=== PATIENT | male | born 1955 | race African-American/Black ===

== ENCOUNTER 2021-06-02 07:03 | Emergency (ER) | payer SELFPAY ==
--- NOTE | 2021-06-02 08:57 | RAD REPORT ---
EXAM DESCRIPTION: US - Extremity Venous Uni Ltd - 06/02/2021 8:45 am CLINICAL HISTORY: Pain;Swelling COMPARISON: None. TECHNIQUE: Real-time sonographic evaluation of the right lower extremity deep venous systems was per formed. FINDINGS: Normal compressibility, flow augmentation, phasic flow and spontaneous flow are identified in the right lower extremity common femoral, superficial femoral, popliteal and posterior tibial vei ns. No intraluminal filling defects seen. IMPRESSION: No DVT in the right lower extremity.
--- NOTE | 2021-06-02 09:50 | RAD REPORT ---
EXAM DESCRIPTION: RAD - Knee Right 3 View - 06/02/2021 9:26 am CLINICAL HISTORY: Pain;Swelling COMPARISON: No comparisons FINDINGS: No fracture, dislocation or periosteal reaction.Joint effusion is suspected. Medial compar tment marginal spurs are present along with spurring of the intercondylar notch and tibial spine. No joint space narrowing. No foreign body or other soft tissue abnormality. IMPRESSION: Joint effusion is suspected and there are degenerative changes present primarily medial compartment. Clinical concerns for internal derangement or occult bony injury could be further assessed with MR im aging.
--- NOTE | 2021-06-02 10:18 | EDPHYS ---
Physician Documentation [facility] Name: Calixto Fowler Age: 65 yrs Sex: Male : 1955 Arrival Date: 06/02/2021 Time: 07:06 Bed 24 Private MD: ED Physician Doc Downing HPI: 06/02 08:05 This 65 yrs old Black Male presents to ER via Ambulatory with complaints of Edema - cp RIGHT KNEE AND THIGH. 08:05 The patient presents with pain, that is acute. The complaints affect the right knee. cp 08:05 Onset: The symptoms/episode began/occurred 3 day(s) ago. cp 08:05 Associated signs and symptoms: Pertinent negatives calf tenderness, numbness, warmth, cp injury. 08:05 Treatment prior to arrival includes: no previous treatment. cp Historical: - Allergies: 07:56 Sulfa (Sulfonamide Antibiotics); iw - Home Meds: 07:56 None [Active]; iw - PMHx: 07:56 None; iw - PSHx: 07:56 None; iw - Immunization history:: Client reports receiving the 2nd dose of the Covid vaccine, Date received: February 26, 2021. - Social history:: Smoking status: Patient denies any tobacco usage or history of. ROS: 08:10 Constitutional: Negative for body aches, chills, fever, poor PO intake. cp 08:10 Eyes: Negative for injury, pain, redness, and discharge. cp 08:10 ENT: Negative for ear pain, sore throat, difficulty swallowing, difficulty handling secretions. 08:10 Cardiovascular: Negative for chest pain, palpitations. 08:10 Respiratory: Negative for shortness of breath. 08:10 Back: Negative for pain at rest, pain with movement. 08:10 MS/extremity: Positive for pain, swelling, tenderness, of the right knee. 08:10 Skin: Negative for rash. 08:10 All other systems are negative. Exam: 08:15 Constitutional: The patient appears in no acute distress, alert, awake, non-toxic, well cp developed, well nourished. 08:15 Head/Face: Normocephalic, atraumatic. cp 08:15 Chest/axilla: Inspection: normal. 08:15 Cardiovascular: Rate: normal. 08:15 Respiratory: the patient does not display signs of respiratory distress, Respirations: normal, no use of accessory muscles, no retractions, labored breathing, is not present. 08:15 Abdomen/GI: Inspection: abdomen appears normal. 08:15 Back: pain, is absent, ROM is normal. 08:15 Musculoskeletal/extremity: ROM: full passive range of motion, in the right knee, Perfusion: the extremity is normally perfused throughout, the right leg Sensation intact. Joints: All joints are normal except the right knee displays effusion, swelling, tenderness. 08:15 Skin: warm, dry, intact and no signs of cellulitis. Vital Signs: 07:55 BP 141 / 105; Pulse 64; Resp 16; Temp 98.6; Pulse Ox 100% on R/A; Weight 92.99 kg; iw Height 5 ft. 8 in. (172.72 cm); 07:55 Body Mass Index 31.17 (92.99 kg, 172.72 cm) iw MDM: 10:05 Patient medically screened. cp 10:10 Differential diagnosis: closed fracture, contusion, tendonitis, DVT, septic joint, cp cellulitis. 10:16 Data reviewed: vital signs, nurses notes, radiologic studies, plain films, ultrasound. cp Counseling: I had a detailed discussion with the patient and/or guardian regarding: the historical points, exam findings, and any diagnostic results supporting the discharge/admit diagnosis, radiology results, the need for outpatient follow up, for definitive care, a orthopedic surgeon, to return to the emergency department if symptoms worsen or persist or if there are any questions or concerns that arise at home. 06/02 09:56 Order name: Glucose, Ancillary Testing EDMS 06/02 08:00 Order name: Knee Right 3 View XRAY; Complete Time: 10:12 iw 06/02 10:12 Interpretation: Report reviewed. cp 06/02 08:07 Order name: US Extremity Venous Unilateral Ltd; Complete Time: 09:47 cp 06/02 09:47 Interpretation: Report reviewed. cp Administered Medications: No medications were administered Disposition: 10:34 Co-signature as Attending Physician, Doc Downing MD I agree with the assessment and kdr plan of care. Disposition Summary: 06/02/21 10:17 Discharge Ordered Location: Home cp Problem: new cp Symptoms: have improved cp Condition: Stable cp Diagnosis - Effusion, right knee cp Followup: cp - With: Michael Kelley MD - When: 2 - 3 days - Reason: Recheck today's complaints Discharge Instructions: - Discharge Summary Sheet cp - Knee Effusion cp - RICE Therapy for Routine Care of Injuries cp Forms: - Medication Reconciliation Form cp - Thank You Letter cp - Antibiotic Education cp - Prescription Opioid Use cp Prescriptions: - Diclofenac Sodium 75 mg Oral tablet,delayed release (DR/EC) - take 1 tablet by ORAL route 2 times per day; 20 tablet; Refills: 0, Product cp Selection Permitted Signatures: Dispatcher [employer] Doc Hein MD MD kdr Williams, Irene, RN RN Vijay Calixto PA PA cp Corrections: (The following items were deleted from the chart) 08:10 08:08 This 65 yrs old Black Male presents to ER via Ambulatory with complaints of Edema cp - RIGHT KNEE AND THIGH. cp
--- NOTE | 2021-06-02 10:18 | ER ---
Nurse's Notes [facility] Name: Calixto Fowler Age: 65 yrs Sex: Male : 1955 Arrival Date: 06/02/2021 Time: 07:06 Bed 24 Private MD: Diagnosis: Effusion, right knee Presentation: 06/02 07:55 Chief complaint: Patient states: right knee pain and swelling since Wednesday, denies iw injury, pt states swelling is going up into his thigh. Coronavirus screen: At this time, the client does not indicate any symptoms associated with coronavirus-19. Ebola Screen: Patient negative for fever greater than or equal to 101.5 degrees Fahrenheit, and additional compatible Ebola Virus Disease symptoms Patient denies exposure to infectious person. Patient denies travel to an Ebola-affected area in the 21 days before illness onset. No symptoms or risks identified at this time. Initial Sepsis Screen: Does the patient meet any 2 criteria? No. Patient's initial sepsis screen is negative. Does the patient have a suspected source of infection? No. Patient's initial sepsis screen is negative. Risk Assessment: Do you want to hurt yourself or someone else? Patient reports no desire to harm self or others. Onset of symptoms was May 31, 2021. 07:55 Method Of Arrival: Ambulatory iw 07:55 Acuity: RICCO 3 iw Triage Assessment: 10:00 General: Appears in no apparent distress. Behavior is calm, cooperative. iw Historical: - Allergies: 07:56 Sulfa (Sulfonamide Antibiotics); iw - Home Meds: 07:56 None [Active]; iw - PMHx: 07:56 None; iw - PSHx: 07:56 None; iw - Immunization history:: Client reports receiving the 2nd dose of the Covid vaccine, Date received: February 26, 2021. - Social history:: Smoking status: Patient denies any tobacco usage or history of. Screenin:29 Abuse screen: Denies threats or abuse. Denies injuries from another. Nutritional iw screening: No deficits noted. Tuberculosis screening: No symptoms or risk factors identified. Fall Risk None identified. Assessment: 08:00 General: Appears in no apparent distress. Behavior is calm, cooperative. Pain: iw Complains of pain in right knee. Neuro: Level of Consciousness is awake, alert, obeys commands, Oriented to person, place, time, situation, Full function. Cardiovascular: Patient's skin is warm and dry. Respiratory: Airway is patent. Derm: Skin is intact, is healthy with good turgor. Musculoskeletal: Swelling present in right knee. Vital Signs: 07:55 BP 141 / 105; Pulse 64; Resp 16; Temp 98.6; Pulse Ox 100% on R/A; Weight 92.99 kg; iw Height 5 ft. 8 in. (172.72 cm); 07:55 Body Mass Index 31.17 (92.99 kg, 172.72 cm) iw ED Course: 07:06 Patient arrived in ED. wm 07:56 Triage completed. iw 07:57 Arm band placed on. iw 08:00 Patient has correct armband on for positive identification. iw 08:06 Vijay Brown PA is PHCP. cp 08:06 Doc Downing MD is Attending Physician. cp 08:45 US Extremity Venous Unilateral Ltd In Process Unspecified. EDMS 09:00 Patient did not have IV access during this emergency room visit. iw 09:24 Knee Right 3 View XRAY In Process Unspecified. EDMS 10:05 Diane Quigley RN is Primary Nurse. iw 10:17 Michael Kelley MD is Referral Physician. cp 10:29 No provider procedures requiring assistance completed. iw Administered Medications: No medications were administered Outcome: 10:17 Discharge ordered by MD. cp 10:29 Discharged to home ambulatory, with family. iw 10:29 Condition: good 10:29 Discharge instructions given to family, Instructed on discharge instructions, follow up and referral plans. Demonstrated understanding of instructions, follow-up care, medications, Prescriptions given X 1. 10:30 Patient left the ED. iw Signatures: Dispatcher [employer] EDCO Diane Quigley RN RN iw Vijay Brown PA PA Melissa Gary Corrections: (The following items were deleted from the chart) 20:10 20:10 Patient did not have IV access during this emergency room visit. iw iw
[2021-06-02 10:34] VITALS: BP 141/105; TEMP 98.6; O2SAT 100
== END 2021-06-02 10:30 | disposition home or self-care (01) ==
LOC: ER 07:03
DX: M25.461 Effusion, right knee (principal); Z88.2 Allergy status to sulfonamides
CPT/HCPCS: 82947; 93971

== ENCOUNTER 2021-06-06 10:58 | Day surgery (SDC) | payer SELFPAY ==
[2021-06-06] MEDS ORDERED: TETANUS & DIPHTHERIA TOX,ADULT 0.5 ML VIAL ONE (11:42)
--- NOTE | 2021-06-06 11:49 | ER ---
Nurse's Notes [facility] Name: Calixto Fowler Age: 65 yrs Sex: Male : 1955 Arrival Date: 06/06/2021 Time: 11:00 Bed 10 Private MD: Diagnosis: Arm Laceration Right/Open wound forearm Presentation: 06/06 11:11 Chief complaint: Patient states: Laceration to inner right wrist. Cut with knife at kg 10:30. Coronavirus screen: Client denies travel out of the [place] in the last 14 days. At this time, unable to obtain information related to travel outside the [place] At this time, the client does not indicate any symptoms associated with coronavirus-19. Ebola Screen: Patient negative for fever greater than or equal to 101.5 degrees Fahrenheit, and additional compatible Ebola Virus Disease symptoms Patient denies exposure to infectious person. Patient denies travel to an Ebola-affected area in the 21 days before illness onset. Complicating Factors: Laceration with knife. Initial Sepsis Screen: Does the patient meet any 2 criteria? No. Patient's initial sepsis screen is negative. Does the patient have a suspected source of infection? No. Patient's initial sepsis screen is negative. Risk Assessment: Do you want to hurt yourself or someone else? Patient reports no desire to harm self or others. Onset of symptoms was June 06, 2021 at 10:30. 11:11 Method Of Arrival: Ambulatory kg 11:11 Acuity: RICCO 3 kg Triage Assessment: 11:14 General: Appears in no apparent distress. Behavior is calm, cooperative, appropriate kg for age, quiet. Pain: Pain radiates to right arm Pain currently is 9 out of 10 on a pain scale. at worst was 10 out of 10 on a pain scale. level that patient reports is acceptable is 3 out of 10 on a pain scale. Quality of pain is described as throbbing, Pain began 1 hour ago. Injury Description: Laceration sustained to right wrist. Historical: - Allergies: 11:13 Sulfa (Sulfonamide Antibiotics); kg - Home Meds: 11:13 None [Active]; kg - PMHx: 11:14 Fluid build up on right knee; kg - PSHx: 11:13 None; kg - Immunization history:: Adult Immunizations not up to date, Client reports receiving the 2nd dose of the Covid vaccine, Date received: February 26, 2021 Cierra Client reports receiving the 1st dose of the Covid vaccine, January 23, 2021. - Social history:: Smoking status: Patient denies any tobacco usage or history of. Patient uses alcohol, on a daily basis. Screenin:18 Abuse screen: Denies threats or abuse. Abuse screen: Denies threats or abuse. Denies kg injuries from another. Nutritional screening: No deficits noted. Tuberculosis screening: No symptoms or risk factors identified. Fall Risk None identified. Assessment: 11:18 Injury Description: Laceration sustained to right wrist. kg 12:02 Musculoskeletal: Circulation, motion, and sensation intact. Capillary refill < 3 ca1 seconds, Range of motion: intact in all extremities. Injury Description: Laceration is clean, 7.6 to 20 cm long. 12:54 Reassessment: Patient appears in no apparent distress at this time. Patient is alert, ca1 oriented x 3, equal unlabored respirations, skin warm/dry/pink. Vital Signs: 11:11 Weight 90.72 kg; Height 5 ft. 8 in. (172.72 cm); Pain 9/10; kg 12:11 BP 155 / 99; Pulse 76; Resp 16 S; Pulse Ox 100% on R/A; ca1 12:54 BP 146 / 89; Pulse 81; Resp 16 S; Pulse Ox 100% on R/A; ca1 11:11 Body Mass Index 30.41 (90.72 kg, 172.72 cm) kg ED Course: 11:00 Patient arrived in ED. mr 11:13 Triage completed. kg 11:14 Arm band placed on left wrist. Patient Gauze and alaina bandage applied. kg 11:18 Patient has correct armband on for positive identification. kg 11:22 Primo Chapman PA is PHCP. jr8 11:22 Doc Downing MD is Attending Physician. jr8 11:23 Shaylee Davis RN is Primary Nurse. ca1 11:40 Missed attempt(s): 22 gauge in left antecubital area. Bleeding controlled, band aid ca1 applied, catheter tip intact. 11:45 Missed attempt(s): 22 gauge in left wrist. Bleeding controlled, band aid applied, ca1 catheter tip intact. 11:48 Nic Ann MD is Hospitalizing Provider. jr8 12:01 No provider procedures requiring assistance completed. Initial lab(s) drawn, by sc, ca1 sent to lab. Inserted saline lock: 22 gauge in left antecubital area, using aseptic technique. Blood collected. 12:26 CXR XRAY In Process Unspecified. EDWY 12:54 Patient admitted, IV remains in place. ca1 Administered Medications: 11:22 Drug: Tetanus-Diphtheria Toxoid Adult 0.5 ml {Green Coffee Blender: [email or web address]. Exp: kg 02/21/2023. Lot #: [id number]. } Route: IM; Site: left deltoid; 12:10 Follow up: Response: No adverse reaction ca1 12:10 Drug: Ancef (cefazolin) 1 grams Route: IVPB; Site: left antecubital; ca1 12:30 Follow up: Response: No adverse reaction; IV Status: Completed infusion ca1 Outcome: 11:49 Decision to Hospitalize by Provider. jr8 12:54 Admitted to OR accompanied by nurse, via wheelchair, with chart, Report called to ca1 MEMO Solo 12:54 Condition: stable 12:54 Instructed on the need for admit. 12:55 Patient left the ED. [facility] Signatures: Dispatcher [employer] EDWY Umesh Lucretia mr Primo Chapman PA PA jr8 Shaylee Davis RN RN ca1 Diamante Pagan RN RN kg Corrections: (The following items were deleted from the chart) 11:16 11:13 PMHx: None; kg kg
--- NOTE | 2021-06-06 11:49 | EDPHYS ---
Physician Documentation [facility] Name: Calixto Fowler Age: 65 yrs Sex: Male : 1955 Arrival Date: 06/06/2021 Time: 11:00 Bed 10 Private MD: ED Physician Doc Downing HPI: 06/06 11:36 This 65 yrs old Black Male presents to ER via Ambulatory with complaints of Laceration jr8 To Arm. 11:36 The patient has a laceration related to: working, occurred at work. The laceration(s) jr8 is(are) located on the right arm. Onset: The symptoms/episode began/occurred acutely, today. Associated signs and symptoms: The patient has no apparent associated signs or symptoms. The patient has not experienced similar symptoms in the past. The patient has not recently seen a physician. Patient stated that he was working and accidentally cut his right ventral forearm with a knife.. Historical: - Allergies: 11:13 Sulfa (Sulfonamide Antibiotics); kg - Home Meds: 11:13 None [Active]; kg - PMHx: 11:14 Fluid build up on right knee; kg - PSHx: 11:13 None; kg - Immunization history:: Adult Immunizations not up to date, Client reports receiving the 2nd dose of the Covid vaccine, Date received: February 26, 2021 Moderna Client reports receiving the 1st dose of the Covid vaccine, January 23, 2021. - Social history:: Smoking status: Patient denies any tobacco usage or history of. Patient uses alcohol, on a daily basis. ROS: 11:36 Eyes: Negative for injury, pain, redness, and discharge, ENT: Negative for injury, jr8 pain, and discharge, Neck: Negative for injury, pain, and swelling, Cardiovascular: Negative for chest pain, palpitations, and edema, Respiratory: Negative for shortness of breath, cough, wheezing, and pleuritic chest pain, Abdomen/GI: Negative for abdominal pain, nausea, vomiting, diarrhea, and constipation, Back: Negative for injury and pain, Neuro: Negative for headache, weakness, numbness, tingling, and seizure. 11:36 MS/extremity: Positive for laceration, pain, tenderness. 11:36 Skin: Positive for laceration(s). Exam: 11:36 Constitutional: This is a well developed, well nourished patient who is awake, alert, jr8 and in no acute distress. Cardiovascular: Regular rate and rhythm with a normal S1 and S2. No gallops, murmurs, or rubs. Normal PMI, no JVD. No pulse deficits. Respiratory: Lungs have equal breath sounds bilaterally, clear to auscultation and percussion. No rales, rhonchi or wheezes noted. No increased work of breathing, no retractions or nasal flaring. Neuro: Awake and alert, GCS 15, oriented to person, place, time, and situation. Cranial nerves II-XII grossly intact. Motor strength 5/5 in all extremities. Sensory grossly intact. Cerebellar exam normal. Normal gait. 11:36 Musculoskeletal/extremity: Extremities: grossly normal except: noted in the right arm: laceration, Tendon exam: postive for partial tendon laceration Right forearm flexural tendon. 11:36 Skin: injury, laceration(s), the wound is approximately 7.5 cm(s), with a depth of 1 cm(s), of the Ventral right forearm, that can be described as irregular, with mild bleeding. Vital Signs: 11:11 Weight 90.72 kg; Height 5 ft. 8 in. (172.72 cm); Pain 9/10; kg 12:11 BP 155 / 99; Pulse 76; Resp 16 S; Pulse Ox 100% on R/A; ca1 12:54 BP 146 / 89; Pulse 81; Resp 16 S; Pulse Ox 100% on R/A; ca1 11:11 Body Mass Index 30.41 (90.72 kg, 172.72 cm) kg MDM: 11:22 Patient medically screened. jr8 11:33 Data reviewed: vital signs, nurses notes, lab test result(s), EKG, radiologic studies, jr8 plain films. 11:36 Counseling: I had a detailed discussion with the patient and/or guardian regarding: the jr8 historical points, exam findings, and any diagnostic results supporting the discharge/admit diagnosis, lab results, radiology results, the need for further work-up and treatment in the hospital. ED course: Dr. Ann was consulted on case and will take patient to surgery. Patient has been n.p.o. since midnight.. 06/06 11:33 Order name: CBC with Diff jr8 06/06 11:33 Order name: Basic Metabolic Panel rust 06/06 11:33 Order name: CXR XRAY; Complete Time: 12:45 8 06/06 11:33 Order name: IV; Complete Time: 12:01 06/06 11:33 Order name: EKG - Nurse/Tech; Complete Time: 12:01 06/06 11:33 Order name: EKG; Complete Time: 11:34 jr8 Administered Medications: 11:22 Drug: Tetanus-Diphtheria Toxoid Adult 0.5 ml {Pick Up: [employer]. Exp: kg 02/21/2023. Lot #: [id number]. } Route: IM; Site: left deltoid; 12:10 Follow up: Response: No adverse reaction ca1 12:10 Drug: Ancef (cefazolin) 1 grams Route: IVPB; Site: left antecubital; ca1 12:30 Follow up: Response: No adverse reaction; IV Status: Completed infusion ca1 Disposition Summary: 06/06/21 11:49 Hospitalization Ordered Hospitalization Status: Observation rust Provider: Nic Ann rust Location: Telemetry/MedSur (observation) rust Condition: Stable rust Problem: new rust Symptoms: have improved rust Bed/Room Type: Standard rust Room Assignment: rust Diagnosis - Arm Laceration Right/Open wound forearm rust Forms: - Medication Reconciliation Form 8 - SBAR form rust Addendum: 06/07/2021 18:09 Co-signature as Attending Physician, Doc Downing MD I agree with the assessment and k dr plan of care. Signatures: Dispatcher [employer] EDAR Doc Downing MD MD [facility] Primo Chapman PA PA rust Shaylee Davis RN RN ca1 Diamante Pagan RN RN kg Corrections: (The following items were deleted from the chart) 06/06 11:16 11:13 PMHx: None; kg kg 12:34 12:04 CORONAVIRUS+.BRZ ordered. EDAR EDMS
[2021-06-06 12:14] LABS: Absolute Lymphocytes (CBC) 0.5 K/uL (0.7-4.9); Basophils % 0.6 % (0-1.3); Hematocrit 40.1 % (39.6-49.0); Lymphocytes % 6.7 % (15.3-44.8); MPV 7.6 fL (7.6-11.3); RBC Red Blood Cell Count 4.39 M/uL (4.33-5.43)
[2021-06-06] MEDS ORDERED: CEFAZOLIN/SWI 1gm 1 GM/10 ML SYR ONE ×2 (12:26→13:51)
--- NOTE | 2021-06-06 12:43 | RAD REPORT ---
EXAM DESCRIPTION: RAD - Chest Single View - 06/06/2021 12:26 pm CLINICAL HISTORY: PREOP Chest pain. COMPARISON: CHEST SINGLE VIEW dated 01/14/2016; CHEST PA AND LAT 2 VIEW dated 12/29/2010; Knee Right 3 View dated 06/02/2021 FINDINGS: Portable technique limits examination quality. The lungs are grossly clear. The heart is normal in size. No displaced fractures. IMPRESSION: No acute intrathoracic process suspected.
[2021-06-06 12:56] LABS: Potassium 4.2 mmol/L (3.5-5.1)
[2021-06-06] MEDS: Ringers Lactate 1,000 ML IV ONE (13:00)
[2021-06-06 13:19] LABS: Blood Morphology Comment NOT SEEN (NOT SEEN); Platelet Estimate ADEQ; White Blood Cell Scan OK (OK)
[2021-06-06] MEDS ORDERED: propofoL 200 MG/20 ML VIAL IV ONE (13:57)
[2021-06-06] MEDS ORDERED: dexAMETHasone 10 MG/ML VIAL ONE (13:58)
[2021-06-06] MEDS ORDERED: MIDAZOLAM HCL 2 MG/2 ML INJ ONE (13:58)
[2021-06-06] MEDS ORDERED: ONDANSETRON 4 MG/2 ML VIAL ONE (13:58)
[2021-06-06] MEDS ORDERED: LIDOCAINE 1% MPF 5 ML VIAL ONE (13:58)
[2021-06-06] MEDS ORDERED: FENTANYL CITR 250 MCG/5 ML ONE (13:58)
[2021-06-06] MEDS ORDERED: NS 0.9% VIAL 0 ML ONE (13:58)
[2021-06-06] MEDS ORDERED: FENTANYL CITR 100 MCG/2 ML ONE (14:27)
[2021-06-06] MEDS ORDERED: KETOROLAC 30 MG/ML INJ ONE (14:34)
[2021-06-06] MEDS ORDERED: HYDROCODONE/APAP 10/325 TAB ONE (16:08)
[2021-06-06 16:29] VITALS: BP 156/103; TEMP 97.1; O2SAT 100
--- NOTE | 2021-06-06 20:18 | OP ---
Surgeon: Nic Ann MD Preoperative Diagnosis: Open wound of the right volar forearm with laceration of palmaris longus, hoskins perficialis flexor to the index and middle. Postoperative Diagnosis: Open wound of the right volar forearm with laceration of palmaris longus, s uperficialis flexor to the index and middle. Procedure Performed: Volar fasciotomy, repair of superficialis to index and middle, simple closure o f 5 cm wound and splint. Anesthesia: General. Operative Note: After satisfactory induction of general anesthesia, right arm was prepped with Betad ine scrub, Betadine paint, dry sterile drapes were applied in usual manner. Arm was elevated, exsang uinated with an Esmarch, tourniquet inflated to 250 mmHg. Hand was placed on a Roto Lock table. Mus aurora was bulging out of the wound. Fasciotomy was performed volarly releasing the muscle. Dissection was proceeded down. The patient had complete transection of the tendons to the superficialis, index and middle. This was repaired with core sutures of 4-0 Prolene. The wound was irrigated with antib iotic solution. The palmaris longus was not repaired. Small muscle laceration was also repaired wit h 3-0 Vicryl. Tourniquet was released. Electrocautery was used for hemostasis. Portion of wound th at underwent elective fasciotomy was closed approximately 5 cm in length but the open area, which had muscle bulging could not be closed, left open, and dressings consisted of Xeroform, 4 x 4, Kerlix, a nd a splint holding the wrist in a 30 degrees flexion. The patient tolerated procedure well returned to Recovery . DAT/BOOKER Voice ID: [id number] Report ID: [id number]
--- NOTE | 2021-06-08 08:04 | EKG ---
Test Date: 2021-06-06 Test Time: 11:40:57 Crystal Flat Grinder: JEFF MEASUREMENT RESULTS: Intervals: Rate: 77 WY: 158 QRSD: 92 QT: 380 QTc: 430 [place]bull: P: 28 WY: 158 QRS: -25 T: 24 INTERPRETIVE STATEMENTS: Normal sinus rhythm Incomplete right bundle branch block Borderline ECG Compared to ECG 01/14/2016 14:49:24 Incomplete right bundle-branch block now present Sinus bradycardia no longer present Electronically Signed On 06-08-21 08:00:42 CDT by Enzo Padgett
== END 2021-06-06 16:46 | disposition home or self-care (01) ==
LOC: ER 10:58 → DS 16:41
PROVIDERS: ATTEND Specialist
PROC: 0LQ50ZZ Repair Right Lower Arm and Wrist Tendon, Open Approach (ICD-10-PCS; 2021-06-06)
PROC: 0KQC0ZZ Repair Right Hand Muscle, Open Approach (ICD-10-PCS; 2021-06-06)
PROC: 0LQ50ZZ Repair Right Lower Arm and Wrist Tendon, Open Approach (ICD-10-PCS; principal; 2021-06-06 14:00)
DX: S51.811A Laceration without foreign body of right forearm, initial encounter (principal); Z23 Encounter for immunization; Z88.2 Allergy status to sulfonamides; W26.0XXA Contact with knife, initial encounter; Y93.9 Activity, unspecified; Y92.9 Unspecified place or not applicable; Y99.0 Civilian activity done for income or pay; Z20.822 Contact with and (suspected) exposure to COVID-19
CPT/HCPCS: 36415; 71045; 80048; 85025; 90471; 90714; 93005; 96365; 99285; J0690; J1100; J2250; J2405; J2704; J3010; J7120; U0003

== ENCOUNTER 2021-06-09 07:52 | Day surgery (SDC) | payer SELFPAY ==
[2021-06-09] MEDS ORDERED: Ringers Lactate 1,000 ML IV ONE (09:14)
[2021-06-09] MEDS ORDERED: propofoL 200 MG/20 ML VIAL IV ONE (10:22)
[2021-06-09] MEDS ORDERED: FENTANYL CITR 100 MCG/2 ML ONE ×2 (10:22→11:36)
[2021-06-09] MEDS ORDERED: MIDAZOLAM HCL 2 MG/2 ML INJ ONE (10:22)
[2021-06-09] MEDS ORDERED: LIDOCAINE 2% MPF 5 ML VIAL ONE (10:24)
[2021-06-09] MEDS ORDERED: ONDANSETRON 4 MG/2 ML VIAL ONE (10:24)
[2021-06-09 10:36] VITALS: O2SAT 100
[2021-06-09] MEDS ORDERED: CODEINE 30MG/APAP 300MG TAB ONE (12:11)
[2021-06-09 12:37] VITALS: BP 133/95; TEMP 97.2
--- NOTE | 2021-06-09 21:55 | OP ---
Surgeon: Nic Ann MD Preoperative Diagnosis: Open wound of the right forearm. Postoperative Diagnosis: Open wound of the right forearm. Procedure Performed: Debridement of skin and subcu tissue and tendon, simple closure of 8 cm wound a nd splint. Anesthesia: General. Operative Note: After satisfactory induction of general anesthesia, right arm was prepped with Betad ine scrub and Betadine paint. Dry sterile drapes were applied in the usual manner. Hand was placed on Roto Lock table. A scalpel was used to debride skin and subcu tissue. The palmaris lo ngus was resected, was in the wound. Then, the wound was closed with vertical mattress 4-0 Prolene s utures. Dressed with Xeroform, Kerlix, and a splint. Volar wrist flexion MCP 90 ___. The patient tolerated the procedure well and returned to Recovery. DAT/BOOKER Voice ID: [id number] Report ID: [id number]
== END 2021-06-09 12:05 | disposition home or self-care (01) ==
LOC: OR 07:52
PROVIDERS: ATTEND Specialist
PROC: 0JDG0ZZ Extraction of Right Lower Arm Subcutaneous Tissue and Fascia, Open Approach (ICD-10-PCS; principal; 2021-06-09 10:00)
DX: S51.801A Unspecified open wound of right forearm, initial encounter (principal); I96 Gangrene, not elsewhere classified
CPT/HCPCS: 88304; J2250; J2405; J2704; J3010; J7120